=== PATIENT | female | born 1990 | race Two or more races ===

== ENCOUNTER → 2023-02-10 | Outpatient (REF) | payer BC | LOC: M PLALAB 11:17 | PROVIDERS: ATTEND Advanced Practice Midwife | DX: Z34.01 Encounter for supervision of normal first pregnancy, first trimester (principal) ==

== ENCOUNTER → 2023-02-10 | Outpatient (CLI) | payer BC ==
[2023-02-10 14:07] LABS: HEMATOCRIT 41.3 % (36.0-47.0); HEMOGLOBIN 13.6 g/dl (12.0-15.5); MEAN CORPUSCULAR HEMOGLOBIN 30.5 pg (27.0-33.0); MEAN CORPUSCULAR HGB CONC 32.9 g/dl (32.0-36.5); MEAN CORPUSCULAR VOLUME 92.6 fl (80.0-96.0); PLATELET COUNT, AUTOMATED 200 10^3/uL (150-450); RED BLOOD COUNT 4.46 10^6/uL (4.00-5.40); WHITE BLOOD COUNT 8.5 10^3/uL (4.0-10.0)
[2023-02-10 14:52] LABS: HIV 1&2 SCREEN NEGATIVE (NEGATIVE)
[2023-02-10 15:01] LABS: HEPATITIS C VIRUS ABY INDEX 0.04 INDEX (<0.8)
== END ==
LOC: M PLALAB 11:20
PROVIDERS: ATTEND Advanced Practice Midwife
DX: O26.891 Other specified pregnancy related conditions, first trimester (principal); N89.8 Other specified noninflammatory disorders of vagina; Z3A.00 Weeks of gestation of pregnancy not specified

== ENCOUNTER → 2023-04-06 | Outpatient (REF) | payer BC ==
[2023-04-06 18:59] LABS: CHLAMYDIA DNA AMPLIFICATION NEGATIVE (NEGATIVE); GC DNA AMPLIFICATION NEGATIVE (NEGATIVE)
== END ==
LOC: M SFHCWAGY 16:54
PROVIDERS: ATTEND Advanced Practice Midwife
DX: Z34.01 Encounter for supervision of normal first pregnancy, first trimester (principal)

== ENCOUNTER 2023-04-19 15:50 | Emergency (ER) | payer BC ==
[~2023-04-19] VITALS: Ht 160 cm; Wt 72.1 kg
[2023-04-19] MEDS ORDERED: PREN1CHW PO (15:59)
[2023-04-19 16:53] LABS: HEMATOCRIT 38.1 % (36.0-47.0); HEMOGLOBIN 12.9 g/dl (12.0-15.5); MEAN CORPUSCULAR HGB CONC 33.9 g/dl (32.0-36.5); MEAN CORPUSCULAR VOLUME 91.6 fl (80.0-96.0); PLATELET COUNT, AUTOMATED 210 10^3/uL (150-450); RED BLOOD COUNT 4.16 10^6/uL (4.00-5.40); WHITE BLOOD COUNT 7.8 10^3/uL (4.0-10.0)
[2023-04-19] MEDS ORDERED: SILVER NITRATE APPLICATOR (1 = QTY 10) TOP ONE (17:45)
[2023-04-19 18:32] VITALS: BP 124/60; TEMP 98.3; O2SAT 100
[2023-04-19 20:09] LABS: CHLAMYDIA DNA AMPLIFICATION NEGATIVE (NEGATIVE); GC DNA AMPLIFICATION NEGATIVE (NEGATIVE)
== END 2023-04-19 18:25 | disposition home or self-care (01) ==
LOC: M ED 15:50
DX: O26.852 Spotting complicating pregnancy, second trimester (principal); O34.62 Maternal care for abnormality of vagina, second trimester; N89.9 Noninflammatory disorder of vagina, unspecified; Z3A.18 18 weeks gestation of pregnancy; Z91.040 Latex allergy status; Z79.810 Long term (current) use of selective estrogen receptor modulators (SERMs)

== ENCOUNTER → 2023-04-23 | Outpatient (CLI) | payer BC ==
[~2023-04-23] MED LIST: PREN1CHW PO
== END ==
LOC: M WHC 14:19
PROVIDERS: ATTEND Obstetrics & Gynecology
DX: O32.1XX0 Maternal care for breech presentation, not applicable or unspecified (principal); Z3A.19 19 weeks gestation of pregnancy

== ENCOUNTER → 2023-06-08 | Outpatient (CLI) | payer BC ==
[2023-06-08 17:49] LABS: HEMATOCRIT 37.2 % (36.0-47.0); HEMOGLOBIN 12.3 g/dl (12.0-15.5); MEAN CORPUSCULAR HEMOGLOBIN 31.1 pg (27.0-33.0); MEAN CORPUSCULAR HGB CONC 33.1 g/dl (32.0-36.5); MEAN CORPUSCULAR VOLUME 93.9 fl (80.0-96.0); PLATELET COUNT, AUTOMATED 160 10^3/uL (150-450); RED BLOOD COUNT 3.96 10^6/uL (4.00-5.40); WHITE BLOOD COUNT 8.1 10^3/uL (4.0-10.0)
[2023-06-08 18:54] LABS: GC DNA AMPLIFICATION NEGATIVE (NEGATIVE)
== END ==
LOC: M PLALAB 14:13
PROVIDERS: ATTEND Obstetrics & Gynecology
DX: Z34.82 Encounter for supervision of other normal pregnancy, second trimester (principal)

== ENCOUNTER → 2023-08-25 | Outpatient (REF) | payer BC | LOC: M SFHCWAGY 17:00 | PROVIDERS: ATTEND Obstetrics & Gynecology | DX: Z36.85 Encounter for antenatal screening for Streptococcus B (principal); Z3A.36 36 weeks gestation of pregnancy ==

== ENCOUNTER → 2024-01-10 | Outpatient (REF) | payer BC | LOC: M SFHCWAGY 12:25 | PROVIDERS: ATTEND Advanced Practice Midwife | DX: Z12.4 Encounter for screening for malignant neoplasm of cervix (principal) ==

== ENCOUNTER → 2024-02-09 | Outpatient (REF) | payer BC | LOC: M SFHCDERM 10:03 | PROVIDERS: ATTEND Physician Assistant | DX: I78.1 Nevus, non-neoplastic (principal) ==

== ENCOUNTER → 2024-07-28 | Outpatient (REF) | payer BC | LOC: M PLALAB 09:38 | PROVIDERS: ATTEND Advanced Practice Midwife | DX: N76.0 Acute vaginitis (principal); Z53.8 Procedure and treatment not carried out for other reasons ==

== ENCOUNTER → 2025-04-17 | Outpatient (REF) | payer BC ==
[2025-04-20 11:00] LABS: HPV APTIMA Detected (Not Detected)
== END ==
LOC: M SFHCWAGY 13:27
PROVIDERS: ATTEND Physician Assistant
DX: Z01.419 Encounter for gynecological examination (general) (routine) without abnormal findings (principal)
CPT/HCPCS: 87624; G0123